=== PATIENT | male | born 1955 | race Caucasian/White ===

== ENCOUNTER → 2021-03-10 10:21 | Outpatient (CLI) | payer OTHER, SELFPAY ==
[2021-03-10 19:47] LABS: Add Manual Diff / Slide Review NO; Basophils Absolute Auto 0 /uL (0-100); Eosinophils Absolute Auto 100 /uL (0-450); Eosinophils Percent Auto 3.3 % (2-4); Hematocrit 42.1 % (41-53); Hemoglobin 14.5 g/dL (13.5-17.5); Lymphocytes Absolute Auto 1100 /uL (1100-4500); Lymphocytes Percent Auto 26.7 % (25-40); Mean Corpuscular HGB Conc 34.4 % (30-36); Mean Corpuscular Hemoglobin 33.1 PG (26-34); Mean Corpuscular Volume 96.3 fL (80-100); Monocytes Absolute Auto 300 /uL (0-900); Neutrophils Absolute Auto 2500 /uL (1500-7000); Platelet Count 172 X10^3/uL (150-400); Red Blood Cell Count 4.37 X10^6/uL (4.5-5.9); Red Cell Distribution Width 12.7 % (11.6-14.8)
[2021-03-10 19:58] LABS: Alanine Aminotransferase 55 IU/L (<50); Albumin 4.4 g/dL (3.5-5.0); Albumin Globulin Ratio 1.5 (1.0-2.8); Alkaline Phosphatase 48 U/L (38-126); Aspartate Aminotransferase 51 IU/L (17-59); Bilirubin Total 1.4 mg/dL (0.2-1.3); Blood Urea Nitrogen 15 mg/dL (9-20); Calcium 9.7 mg/dL (8.4-10.2); Carbon Dioxide 33 mmol/L (22-32); Chloride 100 mmol/L (98-107); Cholesterol 227 mg/dL (140-199); Estimated Glomerular Filt Rate > 60.0 mL/min (>60); Globulin 2.9 g/dL (1.7-4.1); Glucose 100 mg/dL (80-110); HDL Cholesterol 69 mg/dL (40-60); HEMOLYSIS < 15 (0-50); LDL Cholesterol Calculated 123 mg/dL (<100); Potassium 4.2 mmol/L (3.4-5.1); Sodium 139 mmol/L (137-145); Total Protein 7.3 g/dL (6.3-8.2); Triglycerides 177 mg/dL (35-150)
[2021-03-10 20:26] LABS: Prostate Specific Antigen Scrn 1.08 ng/mL (0.1-4.0)
== END ==
PROVIDERS: Visit Provider Physician Assistant
DX: I10 Essential (primary) hypertension (principal); E78.5 Hyperlipidemia, unspecified; Z12.5 Encounter for screening for malignant neoplasm of prostate
CPT/HCPCS: 80053; 80061; 85025; G0103

== ENCOUNTER → 2022-05-23 14:39 | Outpatient (CLI) | payer MEDICARE, SELFPAY ==
[2022-05-23 19:16] LABS: Alanine Aminotransferase 40 IU/L (<50); Albumin Globulin Ratio 1.4 (1.0-2.8); Alkaline Phosphatase 48 U/L (38-126); Aspartate Aminotransferase 40 IU/L (17-59); BUN Creatinine Ratio 25.7 (6-22); Bilirubin Total 1.4 mg/dL (0.2-1.3); Blood Urea Nitrogen 18 mg/dL (9-20); Calcium 9.3 mg/dL (8.4-10.2); Carbon Dioxide 28 mmol/L (22-32); Chloride 103 mmol/L (98-107); Estimated Glomerular Filt Rate > 60 mL/min (>60); Globulin 2.9 g/dL (1.7-4.1); Glucose 106 mg/dL (80-110); HEMOLYSIS < 15 (0-50); Potassium 4.3 mmol/L (3.4-5.1); Sodium 140 mmol/L (137-145); Total Protein 6.9 g/dL (6.3-8.2)
[2022-05-23 19:17] LABS: Add Manual Diff / Slide Review NO; Basophils Absolute Auto 0 /uL (0-100); Basophils Percent Auto 0.5 % (0-2); Eosinophils Absolute Auto 100 /uL (0-450); Eosinophils Percent Auto 1.8 % (2-4); Hematocrit 40.4 % (41-53); Lymphocytes Absolute Auto 1300 /uL (1100-4500); Lymphocytes Percent Auto 29.3 % (25-40); Mean Corpuscular HGB Conc 34.6 % (30-36); Mean Corpuscular Hemoglobin 32.2 PG (26-34); Monocytes Absolute Auto 300 /uL (0-900); Monocytes Percent Auto 6.9 % (3-14); Neutrophils Absolute Auto 2800 /uL (1500-7000); Neutrophils Percent Auto 61.5 % (50-75); Platelet Count 175 X10^3/uL (150-400); Red Blood Cell Count 4.34 X10^6/uL (4.5-5.9); Red Cell Distribution Width 12.3 % (11.6-14.8); White Blood Cell Count 4.5 X10^3/uL (4.5-11.0)
[2022-05-23 19:51] LABS: Prostate Specific Antigen Scrn 0.901 ng/mL (0.1-4.0)
== END ==
PROVIDERS: PCP Physician Assistant; Visit Provider Physician Assistant
DX: Z12.5 Encounter for screening for malignant neoplasm of prostate (principal); I10 Essential (primary) hypertension; N40.0 Benign prostatic hyperplasia without lower urinary tract symptoms; R74.8 Abnormal levels of other serum enzymes
CPT/HCPCS: 80053; 85025; G0103

== ENCOUNTER → 2022-11-15 14:11 | Outpatient (CLI) | payer MEDICARE, SELFPAY ==
--- NOTE | 2022-11-16 02:43 | DI.NM.S_ITS ---
DATE OF SERVICE: 11/15/2022 PROCEDURE: Exercise stress test. INDICATIONS: Exertional chest tightness, as well as left arm pain. CARDIAC STRESS: Cardiac stress patient underwent exercise stress test under the supervision of an attending staff. He walked on Amarjit protocol for 9 minutes and 55 seconds, achieved 12.8 METs of workload and JOSEPH -27%. Baseline blood pressure 150/90 and peak blood pressure 230/80, suggestive of hypertensive blood pressure response. No chest pain; however, around 8 minutes into the exercise, the patient felt left arm numbness, which got resolved quickly in recovery. Baseline rhythm was sinus. At around 7 minutes and 30 seconds into the exercise patient started showing ST depression in inferior leads in lead V3 to V6. Overall, at peak exercise, there was about 2 to [address] depression in those leads, which got resolved to baseline in 1 minute in recovery and in late recovery, there was some nonspecific flattening in inferolateral leads. No significant arrhythmias seen. CONCLUSION: Exercise stress test. This is an abnormal exercise stress test and positive for inducible ischemia. The patient has significant ST depression up to 2 to 4 mm in inferior leads and leads V3 to V6, which started about 7 minutes and 30 seconds into the exercise and it got resolved to baseline in 1 minute in recovery with nonspecific ST-T changes in late recovery. 8 minutes into the exercise, felt left arm numbness, which got resolved in recovery quickly. Excellent exercise capacity. Walked on Amarjit protocol for 9 minutes and 55 seconds, JOSEPH -27% and 12.8 METs of workload. Hypertensive blood pressure response with peak blood pressure 230/80 and resting blood pressure 150/90. In view of left arm numbness during exertion with resolution in recovery, significant ST depression as stated above, and risk factors for CAD, consider cardiology consultation for left heart catheterization. My midlevel who supervised the stress test is going to call the PCP who ordered the stress test and meanwhile will recommend aggressive medical management and risk factor modification. Consider anti-platelet therapy, beta awais, high-intensity statin, as well as good control of blood pressure. Addendum: Michaela (cardiology MUD ANALYSIS SUPERVISOR) notified the PCP. Neri Hall - BONNIE/dylan/kendra doc#: [id number]/job#: [id number] dd: 11/15/2022 17:32:00 dt: 11/16/2022 02:34:00 DICTATING MD/COPIES TO: Patria Vance MD; Randi COPIES MNTatiana: SONAM; ; Randi
--- OUTSIDE RECORDS SUMMARY | 2023-03-29 14:51 | XMS_ITS | Summary of Care ---
Author Name Unknown Organization [facility] Address [address] [place] [address] Care Team Providers Care Custodial Operations Manager Name Role Phone Lucy Robertson PA-C Primary Care Provider [phone]- [phone] Reason for Referral * Hospital - Outpatient (Routine) - Closed Specialty Diagnoses / Procedures Referred By Opal mosley Referred To Contact Diagnoses Chronic ischemic heart disease, unspecified Presence of coronary angioplasty implant and graft Alfredo Winston MD [address] [place] [address] [address] [place] [address] [address] Referral ID Status Reason Start Date Expiration Date Visits Re quested Visits Authorized [id number] Closed 11/29/2022 12/11/2022 1 1 * Diagnostic Imaging (Routine) - Closed Specialty Diagnoses / Procedures Referred By Opal mosley Referred To Contact Radiology Diagnoses Chronic ischemic heart disease, unspecified Essential hypertension, benign Procedures SI LEFT HEART CATH Alfredo Winston MD [address] [place] [address] [address] [place] [address] [id number] [place] [address] Referral ID Status Reason Start Date Expiration Date V isits Requested Visits Authorized [id number] Closed Specialty Services Required 11/20/2022 11/15/2023 1 1 Reason for Visit * Auth/Cert (Routine) Specialty Diagnoses / Procedures Referred By Opal t Referred To Contact Diagnoses CAD in [place] artery Procedures OIB Referral ID Status Reason Start Date Expiration Date Visits Re quested Visits Authorized [id number] 1 1 Encounter Details Date Type Department Care Team Description 11/29/2022 - 11/30/2022 Hospital Encounter [facility] [address] [place] [address] Alfredo Winston MD [address] [place] [address] [address] [place] [address] Chronic ischemic heart disease, unspecified (Primary Dx); Essential hypertension, benign Allergies Active Allergy Reactions Severity Noted Date Comments Penicillins Rash Low 10/11/2021 documented as of this encounter (statuses as of 12/12/2022) Medications Medication Sig Dispensed Refills Start Date End Date Status tadalafiL (CIALIS) 5 mg tablet Take 1 tablet by mouth as needed for erectile dysfunction. Max daily dose 1 tablet. 0 04/17/2022 Active tamsulosin (FLOMAX) 0.4 mg capsule 0 07/01/2022 Active amLODIPine (NORVASC) 2.5 mg tablet 0 11/07/2022 Active aspirin 81 mg EC tablet Take 1 tablet (81 mg total) by mouth daily 0 Active atorvastatin (LIPITOR) 20 mg tablet Take 1 tablet (20 mg total) by mouth nightly 0 Active nitroglycerin (NITROSTAT) 0.[address] 1 tablet (0.4 mg total) under the tongue every 5 (five) minutes as needed for chest pain May repeat every 5 minutes up to 3 doses. 90 tablet 12 11/20/2022 11/20/2023 Active triamterene-hydr ochlorothiazid (MAXZIDE-25) 37.5-25 mg Take 1 tablet by mouth daily 0 03/30/2022 11/29/2022 Discontinued( N o Longer Needed, Treatment Complete) fluorouraciL (EFUDEX) 5 % cream Apply thin layer to scalp and nose twice daily x 2-3 weeks. 40 g 0 07/17/2022 12/08/2022 Discontinued(N o Longer Needed, Treatment Complete) triamcinolone (KENALOG) 0.1 % ointment Apply thin layer to area on knee 2 times a day for up to 2 weeks, then 2-3 times a week as needed 80 g 3 08/14/2022 12/08/2022 Discontinued(N o Longer Needed, Treatment Complete) metoprolol succinate XL (TOPROL-XL) 50 mg 24 hr tablet Take 1 tablet (50 mg total) by mouth daily 30 tablet 11 11/20/2022 12/08/2022 Discontinued(R eorder) ticagrelor (BRILINTA) 90 mg tablet Take 1 tablet (90 mg total) by mouth 2 (two) times a day 60 tablet 11 11/30/2022 11/30/2022 Discontinued(R eorder) ticagrelor (BRILINTA) 90 mg tablet Take 1 tablet (90 mg total) by mouth 2 (two) times a day 60 tablet 11 11/30/2022 12/04/2022 Discontinued(R eorder) documented as of this encounter (statuses as of 12/12/2022) Active Problems Problem Noted Date Hyperlipidemia 04/10/2010 documented as of this encounter (statuses as of 12/12/2022) Immunizations Name Administration Dates Next Due FLU PF 6+Mos Quad (Fluzone, FluLaval, Fluarix) 03/21/2015,03/27/2014,01/27/2013,2012,01/27/2011,01/21/2011,03/15/2010,1 05/23/2007,03/18/2006 H1N1 All Forms 12/28/2012 Influenza, Quadrivalent 01/12/2021 Hpbejp-LFUP-MhH-2 Trs-sucr Vaccine 10/02/2021 Snpogt-JVMO-HzX-2 Vaccine 02/15/2021,07/28/2020 Recombinant Zoster (Shingrix) 04/16/2019, 019 TD Preservative Free (Tenivac) 01/15/2005 Td, Unspecified 03/15/2010,01/15/2005 Tdap (Boostrix,Adacel) 10/26/2019,03/15/2010 documented as of this encounter Social History Tobacco Use Types Packs/Day Years Used Date Smoking Tobacco: Never Smokeless Tobacco: Never Tobacco Cessation:Counseling Given: Not Answered Alcohol Use Standard Drinks/Week Comments Not Currently 2 (1 standard drink = 0.6 oz pur e alcohol) Alcohol Habits Answer Date Recorded How often do you have a drink containing alcohol ? Never 11/30/2022 How many drinks containing a lcohol do you have on a typical day when you are drinking? 1 or 2 11/30/2022 How often do you have six or more drinks on one occasion? Weekly 11/30/2022 Sex Assigned at Date Recorded Male 11/17/2022 3:42 PM P DT Job Start Date Occupation Industry Not on file Not on file Not on file COVID-19 Exposure Response Date Recorded In the last 10 days, have yo u been in contact with someone who was confirmed or suspected to have Coronavirus/COVID-19? No / Unsure 11/29/2022 6:18 PM PDT documented as of this encounter Last Filed Vital Signs Vital Sign Reading Time Taken Comments Blood Pressure 112/72 11/30/2022 7:32 AM PDT Pulse 55 11/30/2022 7:32 AM PDT Temperature 36.5 ??C (97.7 ??F) 11/30/2022 7:32 AM PD T Respiratory Rate 16 11/30/2022 7:32 AM PDT Oxygen Saturation 96% 11/30/2022 7:32 AM PDT Inhaled Oxygen Concentration - - Weight - - Height - - Body Mass Index - - documented in this encounter Discharge Summaries * BARBARA Armas - 11/30/2022 10:45 AM PDT CARDIOLOGY DISCHARGE SUMMARY Pt. Name/Age/: Neri Hall 67 y.o. 1955 Date of Admission: 11/29/2022 Date of Discharge: 11/30/2022 PCP: Lucy Robertson Discharging Provider: BARBARA Armas [facility] Discharge Dx: 1. Ischemic heart disease, hypertension and stable angina pectoris Additional Discharge Dx: Active Ambulatory Problems Diagnosis Date Noted No Active Ambulatory Problems Resolved Ambulatory Problems Diagnosis Date Noted No Resolved Ambulatory Problems Past Medical History: Diagnosis Date Abnormal result of other cardiovascular function study Basal cell carcinoma Benign essential hypertension Chest pain Chronic ischemic heart disease, unspecified Family history of ischemic heart disease and other diseases of the circulatory system Hyperlipidemia, unspecified hyperlipidemia type Squamous cell skin cancer Significant tests and procedures during admission: 1. Left heart cath and placement of 2 stents in the LAD Reason for Admission (Brief): Neri Hall is a 67 y.o. male who recently started complaining of chest heaviness when he exercises. He is a very active man he lives on [facility]. He hikes with his dog. Prior to going for his walks he exercises. He has been noticing this heaviness in his chest that radiates up to his neck.He denies any associated autonomic symptoms. He also feels some tingling in his arm. The chest discomfort is resolved within 5 to 10 minutes of rest. He had a exercise treadmill test which showed marked ST segment depression of up to 2 to 4 mm and arm tingling which is similar to his clinical presentation. Hospital Course, including Complications: Mr. Hall had successful deployment of 2 coronary stents for 2 90% stenoses in his LAD by Dr. Winston. There were no complications and in the morning he had not had any bleeding or hematoma at the RFAsite. He denied chest pain or dyspnea and felt well for discharge home. Admit weight: Discharge weight: Medications Reconciled upon Discharge are: Medication List START taking these medications ticagrelor 90 mg tablet Commonly known as: BRILINTA Take 1 tablet (90 mg total) by mouth 2 (two) times a day CONTINUE taking these medications amLODIPine 2.5 mg tablet Commonly known as: NORVASC aspirin 81 mg EC tablet atorvastatin 20 mg tablet Commonly known as: LIPITOR fluorouraciL 5 % cream Commonly known as: EFUDEX Apply thin layer to scalp and nose twice daily x 2-3 weeks. metoprolol succinate XL 50 mg 24 hr tablet Commonly known as: TOPROL-XL Take 1 tablet (50 mg total) by mouth daily nitroglycerin 0.4 mg SL tablet Commonly known as: NITROSTAT Place 1 tablet (0.4 mg total) under the tongue every 5 (five) minutes as needed for chest pain May repeat every 5 minutes up to 3 doses. tadalafiL 5 mg tablet Commonly known as: CIALIS tamsulosin 0.4 mg capsule Commonly known as: FLOMAX triamcinolone 0.1 % ointment Commonly known as: KENALOG Apply thin layer to area on knee 2 times a day for up to 2 weeks, then 2-3 times a week as needed Where to Get Your Medications These medications were sent to [facility] [address] [address] ticagrelor 90 mg tablet Allergies: Allergies Allergen Reactions Penicillins Rash Disposition: Home Follow-Up Plans: Cardiology appt. in 2 months Diet: cardiac diet Activity: no heavy lifting for one week. Do not sit in a hot tub, bath tub or pool for 1 week. Code Status/Advance Directive (Pertinent discussions/declarations): Prior documented in this encounter Discharge Instructions * Discharge Instructions* Shyanne Alejandre RN - 11/29/2022 4:41 PM PDT GROIN CARE: Rest today, DO NOT DRIVE, no alcohol and do not make important decisions for the next 24 hours. Avoid pushing, pulling or lifting more than 10 pounds for the next 5-7 days. No vigorous activity for (48hours) 2 days. Limit use of stairs for 48 hours. If bleeding develops, hold pressure for 15 minutes with a clean cloth or gauze. After 15 minutes orif you are unable to control the bleeding, saturating bandage, call 911. You may shower tomorrow. Dressing may be removed then gently wash site with soap and water, pat drywith a clean towel. Replace with bandaid until well healed. Do not put creams, lotions or powders on site. Do not soak or swim (hot tubs, pools, bathtub) until site is completely healed, about 1 week. * Appointments* Leah Holland CNA - 11/30/2022 9:14 AM PDT Follow up with Dr Manzano #[phone] on SaturdayDec 07 at 10 am (check in 945 am) * Attachments The following attachments cannot be sent through Care Everywhere. * Heart Catheterization (Discharge Care) (Mauritian) * Moderate Sedation (Discharge Care) (Mauritian) documented in this encounter H&P Notes * Alfredo Winston MD - 11/29/2022 12:00 PM PDT Preprocedure History and Physical Indication for procedure: The primary encounter diagnosis was Chronic ischemic heart disease, unspecified. A diagnosis of Essential hypertension, benign was also pertinent to this visit. Relevant past medical/surgical history: Past Surgical History: Procedure Laterality Date JOINT REPLACEMENT left knee partial replacement . Past Medical History: Diagnosis Date Abnormal result of other cardiovascular function study Basal cell carcinoma Benign essential hypertension Chest pain Chronic ischemic heart disease, unspecified Family history of ischemic heart disease and other diseases of the circulatory system Hyperlipidemia, unspecified hyperlipidemia type Squamous cell skin cancer Current medications: Current Outpatient Medications: amLODIPine (NORVASC) 2.5 mg tablet, , Disp: , Rfl: aspirin 81 mg EC tablet, Take 1 tablet (81 mg total) by mouth daily, Disp: , Rfl: atorvastatin (LIPITOR) 20 mg tablet, Take 1 tablet (20 mg total) by mouth nightly, Disp: , Rfl: metoprolol succinate XL (TOPROL-XL) 50 mg 24 hr tablet, Take 1 tablet (50 mg total) by mouth daily,Disp: 30 tablet, Rfl: 11 tadalafiL (CIALIS) 5 mg tablet, Take 1 tablet by mouth as needed for erectile dysfunction. Max daily dose 1 tablet., Disp: , Rfl: tamsulosin (FLOMAX) 0.4 mg capsule, , Disp: , Rfl: triamterene-hydrochlorothiazid (MAXZIDE-25) 37.5-25 mg, Take 1 tablet by mouth daily, Disp: , Rfl: fluorouraciL (EFUDEX) 5 % cream, Apply thin layer to scalp and nose twice daily x 2-3 weeks., Disp:40 g, Rfl: 0 nitroglycerin (NITROSTAT) 0.4 mg SL tablet, Place 1 tablet (0.4 mg total) under the tongue every 5 (five) minutes as needed for chest pain May repeat every 5 minutes up to 3 doses., Disp: 90 tablet, Rfl: 12 triamcinolone (KENALOG) 0.1 % ointment, Apply thin layer to area on knee 2 times a day for up to 2 weeks, then 2-3 times a week as needed, Disp: 80 g, Rfl: 3 Current Facility-Administered Medications: diphenhydrAMINE (BENADRYL) injection 25 mg, 25 mg, intravenous, Once, Alfredo Winston MD fentaNYL (SUBLIMAZE) 50 mcg/mL injection - ADS Override Pull, , , , Insert peripheral IV, , , Once AND lidocaine (XYLOCAINE) 10 mg/mL (1 %) injection 1 mL, 1 mL, infiltration, Once PRN AND Maintain IV access, , , Until discontinued AND Saline lock IV, , ,Once AND sodium chloride 0.9 % flush 10 mL, 10 mL, intravenous, PRN, Alfredo Winston MD LORazepam (ATIVAN) injection 1 mg, 1 mg, intravenous, Once, Alfredo Winston MD midazolam (VERSED) 1 mg/mL injection - ADS Override Pull, , , , nitroglycerin (NITROSTAT) SL tablet 0.4 mg, 0.4 mg, sublingual, q5 min PRN, Alfredo Winston MD sodium chloride (NS) 0.9 % infusion, 100 mL/hr, intravenous, Continuous, Alfredo Winston MD ticagrelor (BRILINTA) 90 mg tablet - ADS Override Pull, , , , Relevant family history: Non-contributory Relevant review of systems: Non-contributory Allergies: Penicillins Relevant Labs: Lab Results Component Value Date CREATININE 0.70 (L) 11/29/2022 EGFR 102 11/29/2022 INR 1.0 11/29/2022 Directed physical examination: Alert/Oriented: Normal HEENT: Normal Chest/Lungs: Normal Heart: Normal Abdomen: Normal Mallampati: II (hard and soft palate, upper portion of tonsils anduvula visible) ASA Score: ASA 3 - Patient with moderate systemic disease with functional limitations Source Note - Alfredo Winston MD - 11/20/2022 1:00 PM PDT Subjective Patient ID: Neri Hall is a 67 y.o. male that presents today for had concerns including Consult (Chronic ischemic heart disease, unspecified, Abnormal result of other cardiovascular function study, Chest pain, unspecified and Family history of ischemic heart disease and other diseases of the circulatory system). HPI: Thank you for referring this very pleasant gentleman. His main past medical history is for hypertension. He has had that for nearly 10 years. Recently he started complaining of chest heaviness when he exercises. He is a very active man he lives on [facility]. He hikes with his dog. Prior to going for his walks he exercises. He has been noticing this heaviness in his chest that radiates up to his neck. He denies any associated autonomic symptoms. He also feels some tingling in his arm. Thechest discomfort is resolved within 5 to 10 minutes of rest. He had a exercise treadmill test whichshowed marked ST segment depression of up to 2 to 4 mm and arm tingling which is similar to his clinical presentation. In addition the ST-T changes lasted for greater than 5 minutes into recovery. Hewas advised coronary angiography. Since then the patient has been started on nitroglycerin. He has not used any. He has curtailed his activity. He does not feel his usual self. Denying any orthopnea or PND no palpitations no lightheadedness or dizziness. No history suggestiveof heart failure. Past Medical History: Diagnosis Date ??? Abnormal result of other cardiovascular function study ??? Basal cell carcinoma ??? Benign essential hypertension ??? Chest pain ??? Chronic ischemic heart disease, unspecified ??? Family history of ischemic heart disease and other diseases of the circulatory system ??? Hyperlipidemia, unspecified hyperlipidemia type ??? Squamous cell skin cancer Past Surgical History: Procedure Laterality Date ??? JOINT REPLACEMENT left knee partial replacement Family History Problem Relation Age of Onset ??? Cancer Brother Social History Socioeconomic History ??? Marital status: Single Tobacco Use ??? Smoking status: Never ??? Smokeless tobacco: Never Substance and Sexual Activity ??? Alcohol use: Not Currently ??? Drug use: Yes Types: Marijuana ??? Sexual activity: Yes Partners: Female Allergies Allergen Reactions ??? Penicillins Rash Current Medication List Sig amLODIPine (NORVASC) 2.5 mg tablet aspirin 81 mg EC tablet Take 1 tablet (81 mg total) by mouth daily atorvastatin (LIPITOR) 20 mg tablet Take 1 tablet (20 mg total) by mouth nightly metoprolol succinate XL (TOPROL-XL) 25 mg 24 hr tablet Take 1 tablet (25 mg total) by mouth daily tadalafiL (CIALIS) 5 mg tablet Take 1 tablet by mouth as needed for erectile dysfunction. Max dailydose 1 tablet. tamsulosin (FLOMAX) 0.4 mg capsule triamterene-hydrochlorothiazid (MAXZIDE-25) 37.5-25 mg Take 1 tablet by mouth daily fluorouraciL (EFUDEX) 5 % cream Apply thin layer to scalp and nose twice daily x 2-3 weeks. triamcinolone (KENALOG) 0.1 % ointment Apply thin layer to area on knee 2 times a day for up to 2 weeks, then 2-3 times a week as needed amLODIPine (NORVASC) 5 mg tablet (Discontinued) Take 0.5 tablets (2.5 mg total) by mouth daily Review of Systems Respiratory: Positive for shortness of breath. Cardiovascular: Positive for chest pain. Neurological: Positive for numbness. All other systems reviewed and are negative. Objective BP 128/80 (BP Location: Right arm, Patient Position: Sitting) Pulse (!) 53 Ht 1.778 m Wt 89.4kg BMI 28.27 kg/m?? Physical Exam Assessment/Plan Problem List Items Addressed This Visit None Visit Diagnoses Essential hypertension, benign - Primary Relevant Medications amLODIPine (NORVASC) 2.5 mg tablet metoprolol succinate XL (TOPROL-XL) 25 mg 24 hr tablet Other Relevant Orders ECG 12 Lead (Clinic - Same Day) (Completed) Chronic ischemic heart disease, unspecified Relevant Medications amLODIPine (NORVASC) 2.5 mg tablet aspirin 81 mg EC tablet atorvastatin (LIPITOR) 20 mg tablet metoprolol succinate XL (TOPROL-XL) 25 mg 24 hr tablet The patient presents with fairly typical angina. He had a markedly abnormal stress test. In addition to EKG changes there is also reduction in his functional capacity. We discussed his treatment options. The patient would like to go ahead with angiography. Given the fact that he lives remotely I think it is appropriate to give him a definite diagnosis. He has been having chest discomfort despite being on 2 different antianginals. I have increased his metoprolol to 50 mg. I have also educated him about the proper way to use nitroglycerin in addition I have warned him about the interaction between Cialis and nitroglycerin. We will try to schedule his angiogram within the next 5 to 10 days. Risk/ benefits/alternatives explained. Electronically signed by Alfredo Winston MD 11/20/2022 11:57 AM This note was generated utilizing voice recognition software.?? While attempts have been made to correct mistakes, common errors may occur, including substitution of words that sound phonetically similar to the intended word as well as random substitution errors.?? Please take this into consideration and use clinical context when necessary. documented in this encounter Nursing Notes * Krystal Guillory RN - 11/30/2022 10:48 AM PDT Pt ordered for discharge to home. Discharge instructions and medications reviewed with patient. Pt escorted to [facility] in apparent stable condition with all belongings at about 10:48 AM via wheelchair by tree and shrub worker. 10:49 AM * Chela Soto - 11/30/2022 6:42 AM PDT Identify possible barriers to meeting goals/advancing plan of care: Problem: Pain - Adult Goal: Verbalizes/displays adequate comfort level or baseline comfort level Outcome: Progressing Problem: Infection - Adult Goal: Isolation precautions followed Outcome: Progressing Goal: Absence of infection during hospitalization Outcome: Progressing Goal: Absence of fever/infection during anticipated neutropenic period Outcome: Progressing Problem: Safety Adult - Fall Goal: Free from fall injury Outcome: Progressing Problem: Discharge Planning Goal: Discharge to home or other facility with appropriate resources Outcome: Progressing End of Shift/ Care Plan Summary: A&OX4. Independent. VSS on RA. During sleep HR dipped to high 40 -50s, per patient known to have low HR, he was asymptomatic. Denies chest pain, sob. Right groin site tender to touch, no pain at rest. No hematoma noted, noted old drainage on dressing, changed dressing this morning. Sleeping in between cares. Able to make needs known. * Sylwia Pinto RN - 11/29/2022 6:45 PM PDT Identify possible barriers to meeting goals/advancing plan of care: Not adequate for discharge End of Shift/ Care Plan Summary: Pt AAOx4, able to communicate needs. Continuous telemetry monitoring, SR. Rt groin cath site with dressing CDI, no bruising or bleeding observed. Distal pulses intact. Denies numbness, tingling, pain, or nausea. Respirations even and unlabored on room air. Pt notified to use call light for assistance with ADL's, VU. Pt oriented to call light, in reach. Fall, safety precautions maintained at all times. All care completed this shift per orders and facility protocols. Bed locked in low position. Problem: Pain - Adult Goal: Verbalizes/displays adequate comfort level or baseline comfort level Outcome: Progressing Problem: Infection - Adult Goal: Isolation precautions followed Outcome: Progressing Goal: Absence of infection during hospitalization Outcome: Progressing Goal: Absence of fever/infection during anticipated neutropenic period Outcome: Progressing Problem: Safety Adult - Fall Goal: Free from fall injury Outcome: Progressing Problem: Discharge Planning Goal: Discharge to home or other facility with appropriate resources Outcome: Progressing * Sylwia Pinto RN - 11/29/2022 6:16 PM PDT Pt admitted from [facility] and assisted into bed. Pt AAOx4, able to communicate needs. Continuous telemetry monitoring, SR. Rt groin cath site with dressing CDI, no bruising or bleeding observed. Distal pulses intact. Denies numbness, tingling, or pain. Respirations even and unlabored on room air. Assessment completed and vitals taken. Pt denies pain or discomfort, pt denies nausea. Pt notified to use call light for assistance with ADL's, VU. Pt oriented to call light, in reach. Fall, safety precautions maintained at all times. All care completed this shift per orders and facility protocols. Bed locked in low position. * Madina Campbell - 11/29/2022 1:12 PM PDT See [facility] Procedure log for interprocedural vital signs. * Shyanne Alejandre RN - 11/29/2022 12:00 PM PDT Pt arrived to [facility] for LHC Discussed plan of care and safety precautions, reports NPO and medications as instructed Pt reports Marie , spouse being guard driver. See admit and flow sheet Arrived to [facility] post procedure. Pt reports no pain or discomfort. Site clean, starclose . Restrictions reviewed with patient. Repeating restrictions as he tends to forget. MD came in to review what was done and answer questions. Patient is vegetarian, offered couple snacks and apple juice, Called spouse and arrived at bedside. 1600 Bleeding, oozing noticed , groin puncture site. Pressure applied 20 min, still bleeding. high density press laborer staff applied 5 ml lidocaine with epi into the puncture site . 17:30 bleeding stopped, dressing clean. Reviewed Brilinta order for 11/29/2022 with MD as patient was given 180mg per MAR review. MD order tostart Brilinta tomorrow 90 mg twice daily. Patient reviewed overnight admission decision with MD and agreed upon. Verbal handoff provided to RN POC, use and safety precautions reviewed. See flowsheet notes for recovery flow and site management. documented in this encounter OR Notes * Post-Procedure Note - Alfredo Winston MD - 11/29/2022 12:00 PM PDT Special Imaging Postprocedure Note Neri Hall Physician: Alfredo Winston MD Hog Tender: None Diagnosis: Diagnoses of Chronic ischemic heart disease, unspecified and Essential hypertension, benign were pertinent to this visit. Procedure: SI LEFT HEART CATH Complications: None Stents/Grafts/Implant: yes; ALVARO to LAD Blood Product Administration: no If yes, see Blood Administration Record Estimated Blood Loss: minimal Anesthesia: no Specimens Removed: no 11/29/2022 2:39 PM documented in this encounter Plan of Treatment Upcoming Encounters Date Type Specialty Care Team Description 12/27/2022 Office Visit Cardiology Alfredo Winston MD [address] [place] [address] 01/30/2023 Office Visit Cardiology Alysa Gonzalez ARNP [address] [place], [place] [id number] 07/24/2023 Office Visit Dermatology Fabrice Ferrera MD [address] [place], [place] [phone] Scheduled Orders Name Type Priority Associated Diagnoses Orde r Schedule ECG 12 lead ECG STAT Once for 1 Oc currences starting 11/29/2022 until 11/29/2022 Scheduled Referrals Name Type Priority Associated Diagnoses Order Schedule Ambulatory Referral to Cardiac Rehabilitation Outpatient Referral Routine Chronic ischemic heart disease, unspecified 1 Occurrences starting 11/29/2022 until 06/01/2023 Health Maintenance Due Date Last Done Comments Medicare Annual Wellness (AWV) 1955 HM Pneumococcal Adult 65+ (1 - PCV) 1962 Depression Screening (PHQ-2) 1968 Colorectal Cancer Screening (Colonoscopy) 2001 Colorectal Cancer Screening (FOBT) 2001 Colorectal Cancer Screening (Fecal DNA) 2001 Colorectal Cancer Screening Combined 2001 Fall Risk Screening 2021 Influenza Vaccine (#1) 2023 , 01/12/2021, 03/21/2015, Additional history exists DTaP,Tdap,and Td Vaccines (4 - Td or Tdap) 06/25/2032 06/25/2022, 10/26/2019, 03/15/2010, Additional history exists Zoster Vaccines Completed 04/16/2019, 02/11/2019 COVID-19 Vaccine Completed 02/16/2022, 09/2021, 02/15/2021, Additional history exists HPV Vaccines Aged Out No longer eligi ble based on patient's age to complete this topic Hepatitis A Vaccines Aged Out No long er eligible based on patient's age to complete this topic Hepatitis B Vaccines Aged Out No long er eligible based on patient's age to complete this topic IPV Vaccines Aged Out No longer eligi ble based on patient's age to complete this topic MMR Vaccines Aged Out No longer eligi ble based on patient's age to complete this topic documented as of this encounter Medical Devices Implanted Type Area Millinery Copyist Device Identifier Shelf Expiration Date Model / Serial / Lot StentYunior Xd 3.0*20mm - [id number] Implanted:Qty: 1 on 11/29/2022 at [facility] [id number] / / documented as of this encounter Procedures Procedure Name Priority Date/Time Associated Diagnosis Comments DISCHARGE PATIENT Routine 11/30/2022 9:4 4 AM PDT ECG 12-LEAD STAT 11/29/2022 3:23 PM PDT SI LEFT HEART CATH Routine 11/29/2022 2: 08 PM PDT Chronic ischemic heart disease, unspecified Essential hypertension, benign POCT WHOLE BLOOD INR Routine 11/29/2022 10:44 AM PDT COMPLETE BLOOD COUNT WITH DIFF RESULT STAT 11/29/2022 10:27 AM PDT COMPLETE BLOOD COUNT WITH DIFF STAT 11/29/2022 10:27 AM PDT BASIC METABOLIC PANEL STAT 11/29/2022 10:27 AM PDT TELEMETRY EXTERNAL RESULTS 11/29/2022 documented in this encounter Results * ECG 12 lead- now if intervention performed (11/29/2022 3:23 PM PDT) HR 67 bpm [facility] IECG RR 896 ms [facility] IECG AR 202 ms [facility] IECG QRSD 99 ms [facility] IECG QT 393 ms [facility] IECG QTc 415 ms [facility] IECG QRS 39 deg [facility] IECG T 48 deg [facility] IECG Impression - NORMAL ECG - [facility] IECG Impression Sinus rhythm [facility] IECG Impression When compared with ECG of 20-Nov-2022 11:47:23, [facility] IECG Impression No significant change [facility] IECG 11/29/2022 3:23 PM PDT Alfredo Winston MD ECG ORDERABLES [facility] IECG * SI LEFT HEART CATH (11/29/2022 2:08 PM PDT) Anatomical Region Laterality Modality Left Catheterization/ Interventional Lab Narrative 11/29/2022 2:49 PM PDT Cardiac Cath Report Date of Service 11/29/22 Procedure: SI LEFT HEART CATH Indications: chest pain Vascular Access Right Femoral Artery using 6 Fr sheath, closure with Closure Device. Procedure Details Left heart cath details: The patient was brought to the cardiac catheterization lab in a fasting state. Patient was laid supine on the cardiac catheterization table and the vascular access site was prepped and draped in the usual sterile fashion. One percent Lidocaine was infiltrated over the Right Femoral Artery and vascular access was achieved. Guide wire was used to advance the catheter through the sheath and up into the aortic sinuses. After coronary angiography was completed, guide wire was advanced through the catheter ahead of the tip of the catheter and the guide wire along with the catheter were pulled together out of the sheath. Findings 1) Coronary angiography: left dominance A. Left main: Short no significant disease B. Left Anterior Descending (LAD) Artery: Moderate caliber transapical vessel. ??In its mid segment just after the takeoff of the first septal branch it has a tight 90% lesion followed by another 90% lesion distally. C. Left Circumflex (LCx): Dominant vessel. ??Distally it has a 50 to 60% lesion. ??Stenosis D. Right Coronary Artery: Nondominant. ??Mild ostial disease and some catheter induced damping. ??In its proximal segment it also has D2 40% lesion. Interventional details: We then proceeded with an intervention on the LAD. ??Tish guide and a run-through wire was used both lesions were predilated with a 2 oh balloon distally the lesion was stented with a 3.25 x 18 mm stent. ??The proximal lesion was stented with a 3.0 by 20 mm Synergy stent which was deployed at 20 nicolette giving us a ??final diameter of 3.4 mm. ??Final angiographic results were excellent. Complications There were no periprocedural complications identified Summary: LAD stent Recommendations: Dual antiplatelet therapy for 3 months Alfredo Winston MD Result approved by Alfredo Winston MD on 12/03/22 Procedure Note Alfredo Winston MD - 11/29/2022 Cardiac Cath Report Date of Service 11/29/22 Procedure: SI LEFT HEART CATH Indications: chest pain Vascular Access Right Femoral Artery using 6 Fr sheath, closure with Closure Device. Procedure Details Left heart cath details: The patient was brought to the cardiac catheterization lab in a fastingstate. Patient was laid supine on the cardiac catheterization table andthe vascular access site was prepped and draped in the usual sterilefashion. One percent Lidocaine was infiltrated over the Right FemoralArtery and vascular access was achieved. Guide wire was used to advancethe catheter through the sheath and up into the aortic sinuses. Aftercoronary angiography was completed, guide wire was advanced through thecatheter ahead of the tip of the catheter and the guide wire along withthe catheter were pulled together out of the sheath. Findings 1) Coronary angiography: left dominance A. Left main: Short no significant disease B. Left Anterior Descending (LAD) Artery: Moderate caliber transapicalvessel. In its mid segment just after the takeoff of the first septalbranch it has a tight 90% lesion followed by another 90% lesiondistally. C. Left Circumflex (LCx): Dominant vessel. Distally it has a 50 to 60%lesion. Stenosis D. Right Coronary Artery: Nondominant. Mild ostial disease and somecatheter induced damping. In its proximal segment it also has D2 40%lesion. Interventional details: We then proceeded with an intervention on the LAD. Tish guide and lissette- through wire was used both lesions were predilated with a 2 oh balloondistally the lesion was stented with a 3.25 x 18 mm stent. The proximallesion was stented with a 3.0 by 20 mm Synergy stent which was deployed at20 nicolette giving us a final diameter of 3.4 mm. Final angiographic resultswere excellent. Complications There were no periprocedural complications identified Summary: LAD stent Recommendations: Dual antiplatelet therapy for 3 months Alfredo Winston MD Alfredo Winston MD RIS [facility] SI PROCEDURE S * POCT Whole Blood INR (11/29/2022 10:44 AM PDT) [facility] INR, Whole Blood 1.0 0.8 - 1.2 [facility] POCT (CLIA [id number]) INR Whole Blood Lot# [id number] [facility] POCT (CLIA [id number]) INR Whole Blood Lot# [facility] POCT (CLIA [id number]) Blood Venous blood / Unknown 11/29/2022 10:44 AM PDT Alfredo Winston MD POINT OF CARE TEST O ESVIN [facility] POCT (CLIA [id number]) [address] [place] [address] * (ABNORMAL) Complete blood count with diff (11/29/2022 10:27 AM PDT) [facility] WBC Auto 5.0 3.8 - 10.1 x10e3/uL 11/29/2022 10:43 AM [facility] RBC 4.45 4.40 - 5.80 x10e6/uL 11/29/2022 10:43 AM [facility] Hemoglobin 14.5 13.8 - 17.2 g/dL 11/29/2022 10:43 AM [facility] Hematocrit 41.6 41.0 - 50.0 % 11/29/2022 10:43 AM [facility] MCV 94 81 - 100 fL 11/29/2022 10:43 AM [facility] MCH 32.6 27.0 - 35.0 pg 11/29/2022 10:43 AM [facility] MCHC 34.9 32.0 - 37.0 g/dL 11/29/2022 10:43 AM [facility] RDW 11.5(L) 12.3 - 15.4 % 11/29/2022 10:43 AM [facility] Platelets 182 150 - 400 x10e3/uL 11/29/2022 10:43 AM [facility] MPV 10.0 7.4 - 10.4 fL 11/29/2022 10:43 AM [facility] NRBC % 0 0 /100 WBCs 11/29/2022 10:43 AM [facility] Abs. NRBC 0.0 x10e3/uL 11/29/2022 10:43 AM [facility] % Neutrophils 60 % 11/29/2022 10:43 AM [facility] % Lymphocytes 28 % 11/29/2022 10:43 AM [facility] % Monocytes 7 % 11/29/2022 10:43 AM [facility] % Eosinophils 3 % 11/29/2022 10:43 AM [facility] % Basophils 1 % 11/29/2022 10:43 AM [facility] Abs. Neutrophils 3.0 1.6 - 6.9 x10e3/uL 11/29/2022 10:43 AM [facility] Abs. Lymphocytes 1.4 1.1 - 4.8 x10e3/uL 11/29/2022 10:43 AM [facility] Abs. Monocytes 0.4 0.0 - 1.0 x10e3/uL 11/29/2022 10:43 AM [facility] Abs. Eosinophils 0.2 0.0 - 0.5 x10e3/uL 11/29/2022 10:43 AM [facility] Abs. Basophils 0.1 0.0 - 0.4 x10e3/uL 11/29/2022 10:43 AM [facility] Abs. Neutrophils (Auto) 3,000.0 1,600.0 - 6,900.0 /uL 11/29/2022 10:43 AM [facility] Blood Venous blood / Unknown Venipuncture / Unknown 11/29/2022 10:27 AM PDT 11/29/2022 10:27 AM PDT Alfredo Winston MD LAB BLOOD ORDERABLES [facility] [address] [place] [address] * (ABNORMAL) Basic metabolic panel (11/29/2022 10:27 AM [facility]) Sodium, Serum/Plasma 135 135 - 145 mmol/L LAB CHEMISTRY METHOD 11/29/2022 11:22 AM [facility] Potassium, Serum/Plasma 4.2 3.5 - 5.2 mmol/L LAB CHEMISTRY METHOD 11/29/2022 11:22 AM [facility] Chloride, Serum/Plasma 101 98 - 107 mmol/L LAB CHEMISTRY METHOD 11/29/2022 11:22 AM [facility] CO2, Serum/Plasma 30 22 - 30 mmol/L LAB CHEMISTRY METHOD 11/29/2022 11:22 AM [facility] Anion Gap, Serum/Plasma 4 3 - 11 mmol/L 11/29/2022 11:22 AM [facility] Urea Nitrogen, Serum/Plasma 14.9 8.0 - 27.0 mg/dL LAB CHEMISTRY METHOD 11/29/2022 11:22 AM [facility] Creatinine, Serum/Plasma 0.70(L) 0.76 - 1.27 mg/dL LAB CHEMISTRY METHOD 11/29/2022 11:22 AM [facility] Glucose, Serum/Plasma 108(H) 65 - 99 mg/dL LAB CHEMISTRY METHOD 11/29/2022 11:22 AM [facility] Calcium, Serum/Plasma 8.9 8.5 - 10.1 mg/dL LAB CHEMISTRY METHOD 11/29/2022 11:22 AM [facility] eGFR, Serum/Plasma (CKD-EPI 2020) 102 >60 (CKD-EPI 2020) mL/min/1. 73 m2 11/29/2022 11:22 AM [facility] Comment:eGFR calculation has been updated by recommendation of the [employer] (NKF) without the race variable. This change was made on July 16, 2022 BUN/Creatinine Ratio, Serum/Plasma 21.3 6.0 - 24.0 11/29/2022 11:22 AM [facility] Blood Venous blood / Unknown Venipuncture / Unknown 11/29/2022 10:27 AM PDT 11/29/2022 10:27 AM PDT Alfredo Winston MD LAB BLOOD ORDERABLES [facility] [address] [place], [place] [id number] * TELEMETRY EXTERNAL RESULTS (11/29/2022) Narrative 11/29/2022 Ordered by an unspecified provider. Provider External MD [facility] PROCEDURES documented in this encounter Visit Diagnoses Diagnosis Chronic ischemic heart disease, unspecified- Primary Essential hypertension, benign documented in this encounter Administered Medications Inactive Administered Medications - up to 3 most recent administrations Medication Order MAR Action Action Date Dose Rate Site aspirin chewable tablet 81 mg 81 mg, oral, Daily, First dose on Sat11/30/22 at 0900, Postprocedure (SI) Given 11/30/2022 8:47 AM PDT 81 mg atropine injection (abboject) 0.5-1 mg 0.5-1 mg, intravenous, Every 5 min PRN, bradycardia, symptomatic bradycardia, Starting on Celine 11/29/22 at 1458, Postprocedure (SI), Repeat as directed. fentaNYL (SUBLIMAZE) injection intravenous, As needed, Starting on Celine 11/29/22 at 1321, Intra-op Given 11/29/2022 1:57 PM PDT 50 mcg Given 11/29/2022 1:52 PM PDT 25 mcg Given 11/29/2022 1:40 PM PDT 25 mcg flumazeniL (ROMAZICON) injection 0.2 mg 0.2 mg, intravenous, As needed, for suspected benzodiazepine overdose, Starting on Celine 11/29/22 at 1458, Postprocedure (SI), every 20 min prn for suspected benzodiazepine overdose heparin (porcine) injection intravenous, As needed, Starting on Celine 11/29/22 at 1331, Intra-op Given 11/29/2022 1:31 PM PDT 8,000 Units iopamidoL (ISOVUE-370) 370 mg iodine /mL (76 %) injection As needed, Starting on Celine 11/29/22 at 1356, Intra-op Given 11/29/2022 1:56 PM PDT 120 mL lidocaine (XYLOCAINE) 10 mg/mL (1 %) injection 1 mL 1 mL, infiltration, Once as needed, for use as anesthetic for IV start, Starting on Celine 11/29/22 at 0955, For 1 dose, Preprocedure (SI) midazolam (VERSED) injection intravenous, As needed, Starting on Celine 11/29/22 at 1322, Intra-op Given 11/29/2022 1:57 PM PDT 0.5 mg Given 11/29/2022 1:52 PM PDT 0.5 mg Given 11/29/2022 1:41 PM PDT 1 mg naloxone (NARCAN) injection 0.4 mg 0.4 mg, intravenous, As needed, opioid reversal, respiratory depression, Starting on Celine 11/29/22 at 1458, Postprocedure (SI) nitroglycerin (NITROSTAT) SL tablet 0.4 mg 0.4 mg, sublingual, Every 5 min PRN, chest pain, Starting on Celine 11/29/22 at 0955, For 3 doses, Preprocedure (SI), May administer up to 3 doses per episode. Fall Risk Category 4 nitroglycerin 100 mcg/mL injection As needed, Starting on Celine 11/29/22 at 1332, Intra-op Given 11/29/2022 1:40 PM PDT 75 mcg Given 11/29/2022 1:32 PM PDT 150 mcg sodium chloride (NS) 0.9 % infusion 100 mL/hr, intravenous, Continuous, Starting on Celine 11/29/22 at 1000, Preprocedure (SI), start 1 hour pre-procedure New Bag 11/29/2022 3:08 PM PDT 100 mL/h r 100 mL/hr sodium chloride (NS) 0.9 % infusion 100 mL/hr, intravenous, Continuous, Starting on Celine 11/29/22 at 1500, For 4 hours, Postprocedure (SI), then saline lock until patient ready for discharge. New Bag 11/29/2022 3:00 PM PDT 100 mL/hr 100 mL/hr sodium chloride 0.9 % flush 10 mL 10 mL, intravenous, As needed, line care, Starting on Celine 11/29/22 at 0955, Preprocedure (SI) ticagrelor (BRILINTA) tablet 90 mg 90 mg, oral, 2 times daily, First dose on Celine 11/29/22 at 2100, Postprocedure (SI) Given 11/30/2022 8:46 AM PDT 90 mg ticagrelor (BRILINTA) tablet oral, As needed, Starting on Celine 11/29/22 at 1343, Intra-op Given 11/29/2022 1:43 PM PDT 180 mg documented in this encounter Active and Recently Administered Medications Times are shown in PDT. Scheduled Medication Order 11/28/2022 11/29/2022 11/30/2022 aspirin chewable tablet 81 mg 81 mg, oral, Daily, First dose on Sat11/30/22 at 0900, Postprocedure (SI) 0847 (Given - Provider: Krystal Guillory RN) diphenhydrAMINE (BENADRYL) injection 25 mg 25 mg, intravenous, Once, On Celine 11/29/22 at 1000, For 1 dose, Preprocedure (SI), Give 1 hour prior to procedure 1000 (Canceled Entry - Provider: [facility] Discharge Provider, Automatic - Comment: Automatically canceled at discontinue of medication order) LORazepam (ATIVAN) injection 1 mg 1 mg, intravenous, Once, On Celine 11/29/22 at 1000, For 1 dose, Preprocedure (SI) 1000 (Canceled Entry - Provider: [facility] Discharge Provider, Automatic - Comment: Automatically canceled at discontinue of medication order) ticagrelor (BRILINTA) tablet 90 mg 90 mg, oral, 2 times daily, First dose on Celine 11/29/22 at 2100, Postprocedure (SI) 2100 (Hold - Provider: Shyanne Alejandre RN - Reason: See Provider Order - Comment: per MD orders to start 11/30/2022 0900Hrs. Patient had 180 mg for 11/29/2022) 0846 (Given - Provider: Krystal Guillory RN) Continuous Medication Order 11/28/2022 11/29/2022 11/30/2022 sodium chloride (NS) 0.9 % infusion 100 mL/hr, intravenous, Continuous, Starting on Celine 11/29/22 at 1000, Preprocedure (SI), start 1 hour pre-procedure 1508 (New Bag - Provider: Shyanne Alejandre RN) 0700 (Stopped - Provider: Krystal Guillory, ANTHONY) sodium chloride (NS) 0.9 % infusion () 100 mL/hr, intravenous, Continuous, Starting on Celine 11/29/22 at 1500, For 4 hours, Postprocedure (SI), then saline lock until patient ready for discharge. 1500 (New Bag - Provider: Shyanne Alejandre RN) 0700 (Stopped - Provider: Krystal Guillory RN) PRN Medication Order 11/28/2022 11/29/2022 11/30/2022 atropine injection (abboject) 0.5-1 mg 0.5-1 mg, intravenous, Every 5 min PRN, bradycardia, symptomatic bradycardia, Starting on Celine 11/29/22 at 1458, Postprocedure (SI), Repeat as directed. fentaNYL (SUBLIMAZE) injection (COMPLETED) intravenous, As needed, Starting on Celine 11/29/22 at 1321, Intra-op 1321 (Given - Provider: Madina Campbell)1325 (Given - Provider: Madina Campbell)1340 (Given - Provider: Madina Campbell)1352 (Given - Provider: Madina Campbell)1357 (Given - Provider: Madina Campbell) flumazeniL (ROMAZICON) injection 0.2 mg 0.2 mg, intravenous, As needed, for suspected benzodiazepine overdose, Starting on Celine 11/29/22 at 1458, Postprocedure (SI), every 20 min prn for suspected benzodiazepine overdose heparin (porcine) injection (COMPLETED) intravenous, As needed, Starting on Celine 11/29/22 at 1331, Intra-op 1331 (Given - Provider: Madina Campbell) iopamidoL (ISOVUE-370) 370 mg iodine /mL (76 %) injection (COMPLETED) As needed, Starting on Celine 11/29/22 at 1356, Intra-op 1356 (Given - Provider: Alfredo Winston MD) lidocaine (XYLOCAINE) 10 mg/mL (1 %) injection 1 mL(Linked Group 1) 1 mL, infiltration, Once as needed, for use as anesthetic for IV start, Starting on Celine 11/29/22 at 0955, For 1 dose, Preprocedure (SI) midazolam (VERSED) injection (COMPLETED) intravenous, As needed, Starting on Celine 11/29/22 at 1322, Intra-op 1322 (Given - Provider: Alfredo Wintson MD)1326 (Given - Provider: Madina Campbell)1341 (Given - Provider: Madina Campbell)1352 (Given - Provider: Madina Campbell)1357 (Given - Provider: Madina Campbell) naloxone (NARCAN) injection 0.4 mg 0.4 mg, intravenous, As needed, opioid reversal, respiratory depression, Starting on Celine 11/29/22 at 1458, Postprocedure (SI) nitroglycerin (NITROSTAT) SL tablet 0.4 mg 0.4 mg, sublingual, Every 5 min PRN, chest pain, Starting on Celine 11/29/22 at 0955, For 3 doses, Preprocedure (SI), May administer up to 3 doses per episode. Fall Risk Category 4 nitroglycerin 100 mcg/mL injection (COMPLETED) As needed, Starting on Celine 11/29/22 at 1332, Intra-op 1332 (Given - Provider: Alfredo Winston MD)1340 (Given - Provider: Alfredo Winston MD) sodium chloride 0.9 % flush 10 mL(Linked Group 1) 10 mL, intravenous, As needed, line care, Starting on Celine 11/29/22 at 0955, Preprocedure (SI) ticagrelor (BRILINTA) tablet (COMPLETED) oral, As needed, Starting on Celine 11/29/22 at 1343, Intra-op 1343 (Given - Provider: Madina Campbell) Linked Groups Order Group 1: Insert peripheral IV (CANCELED) Once, On Celine 11/29/22 at 0956, For 1 occurrence
Left arm access unless otherwise instructed by Provider., Preprocedure (SI) And lidocaine (XYLOCAINE) 10 mg/mL (1 %) injection 1 mLJump to med 1 mL, infiltration, Once as needed, for use as anesthetic for IV start, Starting on Celine 11/29/22 at 0955, For 1 dose, Preprocedure (SI) And Maintain IV access (CANCELED) Until discontinued, Starting on Celine 11/29/22 at 0956, Until Specified
Preprocedure (SI) And Saline lock IV (CANCELED) Once, On Celine 11/29/22 at 0956, For 1 occurrence
Preprocedure (SI) And sodium chloride 0.9 % flush 10 mLJump to med 10 mL, intravenous, As needed, line care, Starting on Celine 11/29/22 at 0955, Preprocedure (SI) documented in this encounter Advance Directives Latest Code Status on File Code Status Date Activated Date Inactivated Comments Full Code 12/07/2022 3:07 PM 12/08/2022 3:04 PM Code Status History Code Status Date Activated Date Inactivated Comments Full Code 12/07/2022 1:15 PM 12/07/2022 3:07 PM Full Code 12/06/2022 9:24 PM 12/07/2022 1:15 PM Full Code 11/29/2022 9:55 AM 11/30/2022 12:55 PM Care Teams Custodial Operations Manager Relationship Specialty Start Date End Date Lucy Robertson PA-C [address] [place] [id number] PCP - General Family Medicine 07/17/22 documented as of this encounter
== END ==
PROVIDERS: PCP Family Medicine; Referring Provider Family Medicine; Visit Provider Family Medicine
DX: R07.89 Other chest pain (principal); R94.39 Abnormal result of other cardiovascular function study; R20.2 Paresthesia of skin; E78.2 Mixed hyperlipidemia; I10 Essential (primary) hypertension; Z82.49 Family history of ischemic heart disease and other diseases of the circulatory system
CPT/HCPCS: 93017

== ENCOUNTER → 2022-11-22 10:25 | Outpatient (CLI) | payer MEDICARE, SELFPAY ==
[2022-11-22 20:16] LABS: Add Manual Diff / Slide Review NO; Basophils Absolute Auto 0 /uL (0-100); Basophils Percent Auto 0.7 % (0-2); Eosinophils Absolute Auto 200 /uL (0-450); Eosinophils Percent Auto 2.6 % (2-4); Hematocrit 41.7 % (41-53); Hemoglobin 14.3 g/dL (13.5-17.5); Lymphocytes Absolute Auto 1600 /uL (1100-4500); Lymphocytes Percent Auto 26.3 % (25-40); Mean Corpuscular HGB Conc 34.2 % (30-36); Mean Corpuscular Hemoglobin 32.7 PG (26-34); Mean Corpuscular Volume 95.5 fL (80-100); Monocytes Absolute Auto 400 /uL (0-900); Monocytes Percent Auto 6.9 % (3-14); Neutrophils Absolute Auto 3900 /uL (1500-7000); Neutrophils Percent Auto 63.5 % (50-75); Platelet Count 194 X10^3/uL (150-400); Red Blood Cell Count 4.37 X10^6/uL (4.5-5.9); Red Cell Distribution Width 12.6 % (11.6-14.8); White Blood Cell Count 6.1 X10^3/uL (4.5-11.0)
[2022-11-22 20:31] LABS: Alanine Aminotransferase 48 IU/L (<50); Albumin 4.2 g/dL (3.5-5.0); Albumin Globulin Ratio 1.4 (1.0-2.8); Alkaline Phosphatase 47 U/L (38-126); Aspartate Aminotransferase 46 IU/L (17-59); BUN Creatinine Ratio 26.3 (6-22); Bilirubin Total 1.2 mg/dL (0.2-1.3); Blood Urea Nitrogen 20 mg/dL (9-20); Calcium 9.3 mg/dL (8.4-10.2); Carbon Dioxide 32 mmol/L (22-32); Chloride 100 mmol/L (98-107); Cholesterol 164 mg/dL (140-199); Estimated Glomerular Filt Rate > 60 mL/min (>60); Globulin 3.1 g/dL (1.7-4.1); Glucose 96 mg/dL (80-110); HDL Cholesterol 66 mg/dL (40-60); HEMOLYSIS < 15 (0-50); LDL Cholesterol Calculated 76 mg/dL (<100); Potassium 4.9 mmol/L (3.4-5.1); Sodium 136 mmol/L (137-145); Total Protein 7.3 g/dL (6.3-8.2); Triglycerides 111 mg/dL (35-150)
== END ==
PROVIDERS: PCP Family Medicine; Visit Provider Family Medicine
DX: R07.89 Other chest pain (principal); E78.2 Mixed hyperlipidemia; I10 Essential (primary) hypertension; R07.9 Chest pain, unspecified; Z82.49 Family history of ischemic heart disease and other diseases of the circulatory system
CPT/HCPCS: 80053; 80061; 85025